=== PATIENT | female | born 1995 | race Two or more races ===

== ENCOUNTER 2021-07-08 03:00 | Inpatient (IN) | payer OTHER ==
[2021-07-08] MEDS ORDERED: DEXTROSE 5%-LACTATED RINGERS 500 ML IV ONE (03:35)
[2021-07-08] MEDS ORDERED: DEXTROSE 5%-LACTATED RINGERS 1,000 ML IV SCH ×2 (04:35→07:30)
[2021-07-08 04:36] LABS: BASO % 0.1 % (0-2.0); EOS % 0.1 % (0-4.5); HEMATOCRIT 37.2 % (32.4-45.2); HEMOGLOBIN 12.6 GM/dL (10.7-15.3); LYMPH % 9.1 % (8-40); MCH 29.7 pg (25.7-33.7); MCHC 33.9 g/dl (32.0-36.0); MEAN CELL VOLUME 87.6 fl (80-96); MEAN PLT VOLUME 9.1 fl (7.5-11.1); MONO % 3.6 % (3.8-10.2); NEUT % 87.1 % (42.8-82.8); PLATELET COUNT 199 10^3/uL (134-434); RBC 4.25 M/mm3 (3.60-5.2); RDW 14.5 % (11.6-15.6); WHITE BLOOD COUNT 14.6 K/mm3 (4.0-10.0)
[2021-07-08 05:02] LABS: BLOOD UREA NITROGEN 9.7 mg/dL (7-18); CALCIUM 8.3 mg/dL (8.5-10.1)
[2021-07-08 05:06] LABS: CREATININE 0.6 mg/dL (0.55-1.3)
[2021-07-08 05:19] LABS: INR 0.91 (0.83-1.09); PROTHROMBIN TIME (PATIENT) 10.2 SEC (9.7-13.0)
[2021-07-08 05:21] LABS: ACTIVATED PTT 27.1 SECONDS (25.2-36.5)
[2021-07-08 07:25] VITALS: BMI 31.7
[2021-07-08] MEDS ORDERED: BUTORPHANOL TARTRATE 1 MG/ML VIAL IVPUSH ONE (10:10)
[2021-07-08] MEDS ORDERED: PROMETHAZINE HCL 25 MG/1 ML VIAL IVPB ONE (10:10)
[2021-07-08] MEDS ORDERED: PROMETHAZINE HCL 25 MG/1 ML VIAL IVPUSH ONE (10:10)
[2021-07-08] MEDS ORDERED: BUTORPHANOL TARTRATE 1 MG/ML VIAL IVPB ONE (10:10)
[2021-07-08] MEDS ORDERED: OXYTOCIN 30 UNITS in 0.9% NS 30 UNIT/500 ML INFUS.BAG IVPB ONE (10:12)
[2021-07-08] MEDS ORDERED: OXYTOCIN 20 UNITS in 0.9% NS 20 UNIT/1,000 ML INFUS.BAG IV ONE ×2 (13:58→20:10)
[2021-07-08] MEDS ORDERED: OXYTOCIN 30 UNITS in 0.9% NS 30 UNIT/500 ML INFUS.BAG IVPB SCH (16:45)
[2021-07-08] MEDS ORDERED: LIDOCAINE HCL 1% PRESERVATIVE FREE - 30ML VIAL ONE (19:22)
[2021-07-08] MEDS ORDERED: CITRIC ACID/SODIUM CITRATE 30 ML UNIT-DOSE CUP PO ONE (19:36)
[2021-07-08] MEDS ORDERED: ELECTROLYTE-148 SOLN 1,000 ML IV SCH (19:45)
[2021-07-08] MEDS ORDERED: morphine SULFATE/PF 1 MG/2 ML (2cc Syringe - QUVA) ONE (20:11)
[2021-07-08] MEDS ORDERED: ePHEDrine SULFATE 50 MG/1 ML AMPULE ONE (20:12)
[2021-07-08] MEDS ORDERED: ceFAZolin SODIUM 1 GM VIAL ONE ×2 (20:28)
[2021-07-08] MEDS ORDERED: KETOROLAC TROMETHAMINE 30 MG/1 ML VIAL ONE (20:36)
[2021-07-08] MEDS ORDERED: OXYTOCIN 10 UNITS/ML VIAL ONE (20:36)
[2021-07-08 21:27] LABS: CORD HCO3 22.1 mmHg (20-29); CORD PCO2 54.7 mmHg (30-78); CORD pH 7.225 (7.14-7.44)
[2021-07-08 21:28] LABS: CORD BASE EXCESS -4.5 mmol/L (0-2); CORD HCO3 21.4 mmHg (20-29); CORD PCO2 42.2 mmHg (30-78); CORD pH 7.322 (7.14-7.44)
[2021-07-08] MEDS ORDERED: ACETAMINOPHEN 325 MG TABLET (FP) PO PRN (21:44)
[2021-07-08] MEDS ORDERED: IBUPROFEN 800 MG/8 ML IJ IVPB PRN (21:44)
[2021-07-08] MEDS ORDERED: METHYLERGONOVINE MALEATE 0.2 MG/1 ML AMP IM PRN (21:44)
[2021-07-08] MEDS ORDERED: IBUPROFEN 600 MG TABLET (FP) PO PRN (21:45)
[2021-07-08] MEDS ORDERED: LACTATED RINGERS SOLUTION 1,000 ML IV SCH (21:45)
[2021-07-08] MEDS ORDERED: OXYTOCIN 20 UNITS in 0.9% NS 20 UNIT/1,000 ML INFUS.BAG IV SCH (21:45)
[2021-07-08] MEDS ORDERED: ONDANSETRON 4 MG/2 ML VIAL IVPUSH PRN ×2 (21:45)
[2021-07-08] MEDS ORDERED: oxyCODONE HCL 5 MG TABLET PO PRN (21:48)
[2021-07-08] MEDS ORDERED: ACETAMINOPHEN 1000 MG/100 ML VIAL IVPB PRN (21:48)
[2021-07-09] MEDS ORDERED: ceFAZolin SODIUM 1 GM VIAL ONE ×2 (01:54→11:16)
[2021-07-09] MEDS ORDERED: DEXTROSE 5%-WATER - 50 ML IVPB ONE ×2 (01:54→11:15)
[2021-07-09] MEDS: CEFAZOLIN 1 GM in DEXTROSE 5%-WATER - 50 ML IVPB SCH ×3 (02:12→17:09)
[2021-07-09 08:55] LABS: BASO % 0.3 % (0-2.0); HEMATOCRIT 32.5 % (32.4-45.2); HEMOGLOBIN 11.2 GM/dL (10.7-15.3); LYMPH % 14.1 % (8-40); MCH 30.4 pg (25.7-33.7); MCHC 34.4 g/dl (32.0-36.0); MEAN CELL VOLUME 88.4 fl (80-96); MEAN PLT VOLUME 8.8 fl (7.5-11.1); MONO % 6.6 % (3.8-10.2); PLATELET COUNT 176 10^3/uL (134-434); RBC 3.68 M/mm3 (3.60-5.2); RDW 15.1 % (11.6-15.6); WHITE BLOOD COUNT 15.1 K/mm3 (4.0-10.0)
[2021-07-09] MEDS: PRENATAL VITAMINS W/ FOLIC ACID TABLET (FP) PO SCH (09:42)
[2021-07-09] MEDS: ENOXAPARIN NA (PORCINE) 40 MG/0.4 ML DISP.SYRIN SQ SCH (09:42)
[2021-07-09] MEDS ORDERED: oxyCODONE HCL 5 MG TABLET PO PRN ×2 (09:44)
[2021-07-09] MEDS: IBUPROFEN 600 MG TABLET (FP) PO PRN (21:33)
[2021-07-09] MEDS: SENNOSIDES/DOCUSATE COMBO (SENNA PLUS) TABLET (UD) PO PRN (21:34)
[2021-07-09] MEDS: FERROUS SO4 325 MG TABLET (FP) PO SCH (21:34)
[2021-07-09] MEDS: SIMETHICONE 80 MG TAB.CHEW (FP) PO PRN (21:35)
[2021-07-09] MEDS ORDERED: BISACODYL 10 MG SUPP.RECT RC PRN (21:44)
[2021-07-10] MEDS: SIMETHICONE 80 MG TAB.CHEW (FP) PO PRN ×2 (09:29→22:52)
[2021-07-10] MEDS: ENOXAPARIN NA (PORCINE) 40 MG/0.4 ML DISP.SYRIN SQ SCH (09:29)
[2021-07-10] MEDS: PRENATAL VITAMINS W/ FOLIC ACID TABLET (FP) PO SCH (09:29)
[2021-07-10] MEDS: IBUPROFEN 600 MG TABLET (FP) PO PRN ×2 (09:29→22:53)
[2021-07-10] MEDS: FERROUS SO4 325 MG TABLET (FP) PO SCH ×2 (09:29→22:52)
[2021-07-10] MEDS: SENNOSIDES/DOCUSATE COMBO (SENNA PLUS) TABLET (UD) PO PRN (22:52)
[2021-07-11 08:03] LABS: BASO % 0.3 % (0-2.0); EOS % 1.5 % (0-4.5); HEMOGLOBIN 12.6 GM/dL (10.7-15.3); LYMPH % 21.5 % (8-40); MCH 31.4 pg (25.7-33.7); MEAN CELL VOLUME 87.3 fl (80-96); MEAN PLT VOLUME 8.4 fl (7.5-11.1); MONO % 5.8 % (3.8-10.2); NEUT % 70.9 % (42.8-82.8); PLATELET COUNT 224 10^3/uL (134-434); RBC 4.01 M/mm3 (3.60-5.2); RDW 14.6 % (11.6-15.6); WHITE BLOOD COUNT 10.9 K/mm3 (4.0-10.0)
[2021-07-11] MEDS: ENOXAPARIN NA (PORCINE) 40 MG/0.4 ML DISP.SYRIN SQ SCH (09:48)
[2021-07-11] MEDS: SIMETHICONE 80 MG TAB.CHEW (FP) PO PRN (09:48)
[2021-07-11] MEDS: FERROUS SO4 325 MG TABLET (FP) PO SCH (09:48)
[2021-07-11] MEDS: IBUPROFEN 600 MG TABLET (FP) PO PRN (09:49)
[2021-07-11] MEDS: PRENATAL VITAMINS W/ FOLIC ACID TABLET (FP) PO SCH (09:49)
[2021-07-11 10:28] VITALS: BP 118/72; PULSE 74; TEMP 97.9
== END 2021-07-11 14:00 | disposition home or self-care (01) | DRG 540 ==
LOC: JDEL 03:00 → JLDR 06:15 → J3W 07-09 00:02
PROVIDERS: ADMIT Obstetrics & Gynecology; ATTEND Obstetrics & Gynecology
PROC: 10D00Z1 Extraction of Products of Conception, Low, Open Approach (ICD-10-PCS; principal; 2021-07-08)
DX: O62.1 Secondary uterine inertia (principal); O62.0 Primary inadequate contractions; Z3A.41 41 weeks gestation of pregnancy; Z37.0 Single live birth
CPT/HCPCS: 36415; 36600; 76819-TC; 80048; 82803; 85025; 85610; 85730; 86780; 86850; 86900; 86901; 88307-TC; C9803; U0003; U0005